=== PATIENT | male | born 1980 | race Caucasian/White ===

== ENCOUNTER 2017-05-07 10:57 | Day surgery (SDC) | payer MEDICAID, OTHER ==
[2017-03-29 08:50] VITALS: BMI 35.2
[2017-05-07] MEDS ORDERED: ceFAZolin IV 1 gm in Dextrose 0 GM/0 ML BAG IVPB ONE (13:25)
[2017-05-07] MEDS ORDERED: Bupivacaine-Epi 0.25%-1:200,000 PF Inj ONE (13:25)
[2017-05-07] MEDS ORDERED: HEPARIN-NS 5,000 UNITS/500 ML 5,000 UNIT/500 ML BAG IV ONE (13:26)
[2017-05-07] MEDS ORDERED: Lidocaine 1% Inj (20ml) ONE (13:26)
[2017-05-07] MEDS ORDERED: Sodium Chloride 0.9% 20 ML IV ONE (13:28)
[2017-05-07] MEDS ORDERED: ceFAZolin IV 2 gm in Dextrose 2 GM/50 ML BAG IVPB ONE (13:33)
[2017-05-07] MEDS ORDERED: Lactated Ringer's 1,000 ML IV ONE (13:40)
[2017-05-07] MEDS ORDERED: HYDROmorphone 0.5 mg/0.5 ml ISec IVP PRN (14:57)
--- NOTE | 2017-05-07 15:00 | PCM.SURG1 ---
Surgeon's Initial Post Op Note - Surgeon's Notes Surgeon: Dr. Wood Cook Chef: Dr. Awan PGY2 Type of Anesthesia: General LMA Pre-Operative Diagnosis: lymphoma Operative Findings: see dictation Post-Operative Diagnosis: same Operation Performed: right internal jugular portacath placement Specimen/Specimens Removed: none Estimated Blood Loss: EBL {In ML}: 5 Blood Products Given: N/A Drains Used: No Drains Post-Op Condition: Good Date of Surgery/Procedure: 05/07/17 Time of Surgery/Procedure: 13:40
--- NOTE | 2017-05-07 15:35 | RAD ---
HISTORY: s/p portacath placement COMPARISON: Chest radiograph dated 03/08/2017 FINDINGS: LUNGS: Low lung volumes. No active pulmonary disease. PLEURA: No significant pleural effusion identified, no pneumothorax apparent. CARDIOVASCULAR: Normal. OSSEOUS STRUCTURES: No significant abnormalities. VISUALIZED UPPER ABDOMEN: Normal. OTHER FINDINGS: New right internal jugular access chest port with catheter tip at the cavoatrial junction. IMPRESSION: Interval placement of right sided chest port in satisfactory position. No pneumothorax.
[2017-05-07 17:51] VITALS: BP 116/67; PULSE 77; RESP 20; TEMP 97.8; O2SAT 97
--- NOTE | 2017-05-07 17:58 | RAD ---
PROCEDURE: Intraoperative Fluoroscopy. HISTORY: POOR VENOUS ACCESS FINDINGS: Fluoroscopic assistance was provided for VAD insertion. Please refer fluoroscopy time was 18.9 seconds with a total shoulder does of 0.1566 mgym2.
--- NOTE | 2017-05-08 07:13 | OP ---
PROCEDURE DATE: 05/07/2017 PREOPERATIVE DIAGNOSIS: Lymphoma. POSTOPERATIVE DIAGNOSIS: Lymphoma. PROCEDURES DONE: 1. Right internal jugular Port-A-Cath catheter insertion. 2. Intraoperative fluoroscopy. 3. Ultrasound-guided venous access. SURGEON: Loco Wood MD COOPERATIVE MANAGER: Juanita Awan DO, PGY-2 resident. TYPE OF ANESTHESIA: General endotracheal tube anesthesia. INTRAOPERATIVE FINDINGS: The patient had a patent right IJ on ultrasound. ESTIMATED BLOOD LOSS: Around 10 mL. DRAINS: None. PATHOLOGY: None. COMPLICATIONS: None. DESCRIPTION OF PROCEDURE: On intraoperative steps, this 37-year-old male was diagnosed with lymphoma, and the patient was consented for the Port-A-Cath insertion and brought to the OR, placed supine on the operating room table. After induction of the anesthesia, the bilateral neck and upper chest was prepped and draped in the usual sterile fashion. Under ultrasound guidance, the right IJ venous access was done. The infraclavicular right-sided incision was made and a pouch was created. The catheter was tunneled from the pouch up to the right IJ insertion site, and the catheter was placed into the dilator sheath. Intraoperative fluoroscopy confirmation was done, and the catheter was connected to the port, and the port was accessed intraoperatively. Intraoperative fluoroscopy confirmation was done again, and there was a proper placement of the catheter, and after that, the port was flushed with heparin saline as well as a straight heparin and the port was secured to the pouch. The wound was closed subcutaneously with 2-0 Vicryl, skin with 4-0 Monocryl, and dry sterile dressing was applied. The patient tolerated the procedure well. Count of the instrument and gauze was correct. There was no apparent complication. The patient was extubated in the OR and sent to the Postanesthesia Care Unit in stable condition. Loco Wood MD
== END 2017-05-07 17:10 | disposition home or self-care (01) ==
LOC: C.SDS 10:57
PROVIDERS: ATTEND Surgery Surgical Critical Care
DX: C83.33 Diffuse large B-cell lymphoma, intra-abdominal lymph nodes (principal); I10 Essential (primary) hypertension; R73.03 Prediabetes
CPT/HCPCS: 36561; 71010; 77001; J0690; J1644; J7120

== ENCOUNTER 2017-12-15 18:51 | Emergency (ER) | payer SELFPAY ==
[2017-12-15 18:52] VITALS: BMI 37.0
[2017-12-15] MEDS ORDERED: Iohexol 240 (50 ml) PO STA (20:04)
[2017-12-15] MEDS ORDERED: Sodium Chloride 0.9% 1,000 ML IV ONE (20:04)
[2017-12-15] MEDS ORDERED: Piperacillin/Tazobact 3.375 gm 100 ML IV STA (20:05)
--- NOTE | 2017-12-15 20:06 | C.PDOC ---
"History Of Present Illness 37 year old male with a PMHx of lymphoma a year ago treated and in remission with no problems since, presents to the ER with a complaint of sudden onset of RLQ pain, generalized body aches, muscle pain, and fever of 103 today. Patient states he had a fever 8 days ago that lasted 1.5 days, afterwards he was fine for the rest of the week without any other problems. Denies nausea, vomiting, or trouble urinating. Time Seen by Provider: 12/15/17 19:58 Chief Complaint (Nursing): Abdominal Pain History Per: Patient History/Exam Limitations: no limitations Onset/Duration Of Symptoms: Hrs Current Symptoms Are (Timing): Still Present Location Of Pain/Discomfort: RLQ Radiation Of Pain To:: None Quality Of Discomfort: Unable To Describe Associated Symptoms: Fever, Other (Body aches, muscle pain). denies: Nausea, Vomiting, Urinary Symptoms Exacerbating Factors: None Alleviating Factors: None Recent travel outside of the [place]: No Past Medical History Reviewed: Historical Data, Nursing Documentation, Vital Signs Vital Signs: Last Vital Signs Temp 103 F H 12/15/17 19:20 Pulse 141 H 12/15/17 19:20 Resp 24 12/15/17 19:20 BP 120/73 12/15/17 19:20 Pulse Ox 97 12/15/17 20:23 - Medical History PMH: HTN (no meds at present time sts discontinued), Hypercholesterolemia (no meds at present time sts discontinued) Family History: States: Unknown Family Hx - Social History Hx Tobacco Use: No Hx Alcohol Use: No Hx Substance Use: No - Immunization History Hx Tetanus Toxoid Vaccination: No Hx Influenza Vaccination: No Hx Pneumococcal Vaccination: No Review Of Systems Constitutional: Positive for: Fever Cardiovascular: Negative for: Chest Pain, Palpitations Respiratory: Negative for: Cough, Shortness of Breath Gastrointestinal: Positive for: Abdominal Pain. Negative for: Nausea, Vomiting Genitourinary: Negative for: Dysuria Musculoskeletal: Negative for: Neck Pain Skin: Negative for: Rash Neurological: Negative for: Weakness, Numbness Physical Exam - Physical Exam Appears: Non-toxic Skin: Normal Color, Dry, Other (Hot) Head: Atraumatic, Normacephalic Eye(s): bilateral: Normal Inspection Oral Mucosa: Moist Neck: Normal, Supple Chest: Symmetrical, No Tenderness Cardiovascular: Rhythm Regular (Tachycardic in the 120s) Respiratory: Normal Breath Sounds, No Rales, No Rhonchi, No Wheezing Gastrointestinal/Abdominal: Bowel Sounds (Absent), Soft, Tenderness (RLQ), No Guarding, No Rebound Back: No CVA Tenderness Neurological/Psych: Oriented x3, Normal Speech ED Course And Treatment - Laboratory Results Result Diagrams: 12/15/17 20:37 12/15/17 20:11 Lab Interpretation: No Acute Changes O2 Sat by Pulse Oximetry: 97 (Room air) Pulse Ox Interpretation: Normal - CT Scan/US CT abdomen and pelvis Other Rad Studies (CT/US): Read By Radiologist, Radiology Report Reviewed CT/US Interpretation: EXAM: CT Abdomen and Pelvis With Intravenous Contrast. CLINICAL HISTORY: 37 years old, male; Pain; Abdominal pain; Periumbilical; Additional info: Abd pain. TECHNIQUE: Axial computed tomography images of the abdomen and pelvis with intravenous contrast. All CT. scans at this facility use at least one of these dose optimization techniques: automated exposure. control; mA and/or kV adjustment per patient size (includes targeted exams where dose is matched to. clinical indication); or iterative reconstruction. Coronal and sagittal reformatted images were created and reviewed. CONTRAST: 100 mL of omnipaque 300 administered intravenously. COMPARISON: No relevant prior studies available. FINDINGS: Lung bases: Mild dependent atelectasis. Elevated right hemidiaphragm. ABDOMEN: Liver: There is hepatomegaly and fatty infiltration of the liver. Gallbladder and bile ducts: Distended gallbladder without stones or pericholecystic fluid/induration. No ductal dilation. Pancreas: Unremarkable. No mass. No ductal dilation. Spleen: Mild splenomegaly. Adrenals: Unremarkable. No mass. Kidneys and ureters: No hydronephrosis or differential renal nephrogram. Too small to characterize. right renal hypodensity. Stomach and bowel: Diverticulosis coli, without full- filling the C.T. criteria for diverticulitis. No. perforation, or abscess. No signs or history of bleeding provided. No obstruction. ELIECER TATE | Preliminary Radiology Report. CONFIDENTIALITY STATEMENT. This report is intended only for the use of the referring physician, and only in accordance with law, If you received this in error, call [phone]. Page 2 of 2. PELVIS: Appendix: Normal appendix. Bladder: Incomplete urinary bladder distention with prominent wall. Pericystic induration. Cystitis not. excluded. Correlate with urinalysis. Reproductive: Unremarkable as visualized. ABDOMEN and PELVIS: Intraperitoneal space: Unremarkable. No free air. No significant fluid collection. Bones/joints: No acute fracture. No dislocation. Soft tissues: Central pattern obesity Surgical clips in the right groin. Vasculature: Unremarkable. No abdominal aortic aneurysm. Lymph nodes: There are small, benign-appearing lymph nodes, probably reactive, most measuring 1. cm or smaller in the short axis. Please refer to prior workup. . IMPRESSION: No definitive or acute CT findings to explain the patient's presentation. Surgical changes right groin, correlate with prior work up. Thank you for allowing us to participate in the care of your patient. Dictated and Authenticated by: Kimberly Lambert MD. 12/15/2017 11:32 PM Eastern Time ([place] & [place]) Progress Note: Blood work, urinalysis, and CT abd/pel ordered. Zosyn, morphine, and IV fluids administered. Reevaluation Time: 23:41 Reassessment Condition: Improved Disposition Counseled Patient/Family Regarding: Studies Performed, Diagnosis, Need For Followup - Disposition Referrals: [facility] at [facility] [Outside] Disposition: HOME/ ROUTINE Disposition Time: 23:42 Condition: STABLE Additional Instructions: Follow up in clinic tomorrow. Instructions: Acute Abdomen (Belly Pain), Fever, Adult (DC) Forms: [facility] [employer] (Algerian) - Clinical Impression Clinical Impression: Abdominal pain, Fever - Scribe Statement The provider has reviewed the documentation as recorded by the Scribdanyelle Mckoy All medical record entries made by the Scribe were at my direction and personally dictated by me. I have reviewed the chart and agree that the record accurately reflects my personal performance of the history, physical exam, medical decision making, and the department course for this patient. I have also personally directed, reviewed, and agree with the discharge instructions and disposition."
[2017-12-15] MEDS ORDERED: Iohexol 240 (50 ml) ONE (20:16)
[2017-12-15] MEDS ORDERED: Piperacillin/Tazobact 3.375 gm 100 ML IVPB ONE (20:17)
[2017-12-15 20:34] LABS: URINE BILIRUBIN NEGATIVE (NEGATIVE); URINE BLOOD NEGATIVE (NEGATIVE); URINE CLARITY Clear (Clear); URINE COLOR Yellow (YELLOW); URINE GLUCOSE (UA) NORMAL (Normal); URINE LEUKOCYTE ESTERASE NEG Leu/uL (Negative); URINE PROTEIN NEGATIVE (NEGATIVE); URINE UROBILINOGEN NORMAL mg/dL (0.2-1.0)
[2017-12-15 20:35] LABS: VENOUS BLOOD GAS BASE EXCESS -1.3 mmol/L (0.0-2.0); VENOUS BLOOD GAS PCO2 35 mmHg (40-60); VENOUS BLOOD GAS PO2 39 mm/Hg (30-55); VENOUS BLOOD PH 7.42 (7.32-7.43)
[2017-12-15 20:44] LABS: RBC 4.98 Mil/uL (4.40-5.90); WHITE BLOOD COUNT 9.2 K/uL (4.8-10.8)
[2017-12-15 20:45] LABS: BASO % 0.7 % (0.0-2.0); EOS # 0.1 K/uL (0.0-0.7); EOS % 1.6 % (0.0-4.0); HEMOGLOBIN 14.8 g/dL (12.0-18.0); LYMPH # 0.9 K/uL (1.0-4.3); LYMPH % 6.2 % (20.0-40.0); MEAN CORPUSCULAR HEMOGLOBIN 29.6 pg (27.0-31.0); MEAN CORPUSCULAR HGB CONC 35.6 g/dL (33.0-37.0); MEAN PLATELET VOLUME 7.1 fL (7.2-11.7); MONO # 0.1 K/uL (0.0-0.8); MONO % 9.9 % (0.0-10.0); NEUT # 0.6 K/uL (1.8-7.0); NEUT % 81.6 % (50.0-75.0); NRBC % 7.5 % (0.0-2.0); PLATELET COUNT 332 K/uL (130-400); RED CELL DISTRIBUTION WIDTH 13.9 % (11.5-14.5)
[2017-12-15 21:15] LABS: ALB/GLOB RATIO 1.5 (1.0-2.1); ALBUMIN 4.8 g/dL (3.5-5.0); ALT/SGPT 72 U/L (21-72); AST/SGOT 50 U/L (17-59); BLOOD UREA NITROGEN 19 mg/dL (9-20); CALCIUM 9.6 mg/dl (8.6-10.4); GFR AFRICAN-AMERICAN > 60; GFR NON-AFRICAN AMERICAN > 60; LIPASE 63 U/L (23-300)
[2017-12-15 21:20] LABS: BANDS 6 % (0-2); EOSINOPHIL 4 % (0-4); LYMPHOCYTE 6 % (20-40); MONOCYTE 10 % (0-10); NEUTROPHIL 74 % (50-75); PLATELET ESTIMATE NORMAL (NORMAL); TOTAL CELLS COUNTED 100
[2017-12-15 23:49] VITALS: BP 128/69; PULSE 81; RESP 20; TEMP 99; O2SAT 98
--- NOTE | 2017-12-16 10:48 | CT ---
Date of service: 12/15/2017 PROCEDURE: CT Abdomen and Pelvis without intravenous contrast HISTORY: Abdominal pain COMPARISON: None. TECHNIQUE: Multiple contiguous axial images were the abdomen pelvis without use contrast. Subsequently, sagittal and coronal reformatted images were obtained. Radiation dose: Total exam DLP = 1143 mGy-cm. This CT exam was performed using one or more of the following dose reduction techniques: Automated exposure control, adjustment of the mA and/or kV according to patient size, and/or use of iterative reconstruction technique. FINDINGS: LOWER THORAX: Mild dependent atelectasis. Elevated right hemidiaphragm. 5 millimeter pulmonary nodule within the right middle lobe on series 3, image 8. 3 millimeter pulmonary nodule within the inferior left upper lobe on series 3, image 30. Lingular atelectasis. LIVER: Hepatomegaly with fatty infiltration of the liver. GALLBLADDER AND BILE DUCTS: Distended gallbladder. PANCREAS: Unremarkable. No gross lesion or ductal dilatation. SPLEEN: Mild splenomegaly. Splenules. ADRENALS: Unremarkable. No mass. KIDNEYS AND URETERS: 6 millimeter hypodensity in the mid to lower pole of the right kidney best seen on series 3, image 109, too small to adequately characterize. VASCULATURE: Unremarkable. No aortic aneurysm. BOWEL: Unremarkable. No obstruction. No gross mural thickening. Diverticulosis. APPENDIX: Unremarkable. Normal appendix. PERITONEUM: Unremarkable. No free fluid. No free air. LYMPH NODES: Small benign appearing lymph nodes, probably reactive, most measuring 1 centimeter or smaller in short axis. Please refer to prior workup. BLADDER: Incomplete urinary bladder distention with prominent wall. Pericystic induration. REPRODUCTIVE: Unremarkable. BONES: Degenerative changes in the spine. Multilevel posterior disc osteophyte complexes. OTHER FINDINGS: Surgical clips in the right groin. IMPRESSION: 1. Surgical changes in the right groin. Correlate with prior workup. Clinical correlation. 2. Incomplete urinary bladder distention with prominent wall. Pericystic induration. Clinical correlation. 3. 5 millimeter pulmonary nodule within the right middle lobe on series 3, image 8. 3 millimeter pulmonary nodule within the inferior left upper lobe on series 3, image 30. Lingular atelectasis. Correlation with [address] follow-up would be helpful for further evaluation if clinically indicated. 4. Hepatomegaly with fatty infiltration of the liver. These findings were preliminarily reported at 11:32 p.m. on 12/15/[address] Kimberly Lambert from [facility].
== END 2017-12-15 23:51 | disposition home or self-care (01) ==
LOC: C.ER 18:51
DX: R10.31 Right lower quadrant pain (principal); R50.9 Fever, unspecified
CPT/HCPCS: 74177; 80053; 81001; 82803; 83690; 85025; 87040; 87149; 87205; 96365; 96375; 99285; J2270; J2543; J7030; Q9966

== ENCOUNTER 2018-07-21 21:54 | Emergency (ER) | payer OTHER, SELFPAY ==
[2018-07-21 21:54] VITALS: BMI 36.0
[2018-07-21 22:03] VITALS: TEMP 98.7; O2SAT 99
[2018-07-21] MEDS ORDERED: Sodium Chloride 0.9% 1,000 ML IV STA (22:31)
--- NOTE | 2018-07-21 22:33 | C.PDOC ---
History Of Present Illness 38 y/o M c PMHx lymphoma s/p resection p/w RLQ pain x 1 week, getting much worse as of yesterday. Pain is sharp, intermittent, worse with movement. Denies fever, nausea, vomiting, diarrhea, dysuria, hematuria. Patient suspects muscle strain but due to longevity of pain, came to ED to make sure it wasn't something worse. <Abdullahi Peres - Last Filed: 07/21/18 22:34> <Abdullahi Peres - Last Filed: 07/21/18 22:34> <Emily Alexandre - Last Filed: 07/22/18 02:52> Time Seen by Provider: 07/21/18 22:23 Chief Complaint (Nursing): Abdominal Pain Past Medical History Vital Signs: Last Vital Signs Temp 98.7 F 07/21/18 21:59 Pulse 77 07/21/18 21:59 Resp 16 07/21/18 21:59 BP 133/82 07/21/18 21:59 Pulse Ox 99 07/21/18 21:59 - Medical History PMH: HTN (no meds at present time sts discontinued), Hypercholesterolemia (no meds at present time sts discontinued) Denies: Chronic Kidney Disease Family History: States: Unknown Family Hx - Social History Hx Tobacco Use: No Hx Alcohol Use: No Hx Substance Use: No - Immunization History Hx Tetanus Toxoid Vaccination: No Hx Influenza Vaccination: No Hx Pneumococcal Vaccination: No <LraisaAbdullahi Jean - Last Filed: 07/21/18 22:34> Vital Signs: Last Vital Signs Temp 98.7 F 07/21/18 21:59 Pulse 77 07/21/18 21:59 Resp 16 07/21/18 21:59 BP 133/82 07/21/18 21:59 Pulse Ox 99 07/21/18 22:35 <Emily Alexandre - Last Filed: 07/22/18 02:52> Review Of Systems Except As Marked, All Systems Reviewed And Found Negative. Constitutional: Negative for: Fever Cardiovascular: Negative for: Chest Pain <Abdullahi Peres - Last Filed: 07/21/18 22:34> Physical Exam - Physical Exam Additional Physical Exam Comments: Constitutional: No acute distress. Head: Normocephalic. Atraumatic. Eyes: PERRL. EOMI. ENT: Moist mucous membranes. Neck: Supple. Cardiovascular: Regular rate. Radial pulses 2+ bilaterally. Chest: No tenderness. Respiratory: Clear to auscultation bilaterally. GI: RLQ tenderness with guarding. No hernia. Back: No CVA tenderness. Musculoskeletal: No tenderness or swelling of extremities. Skin: No rash. Neurologic: Alert, no focal deficit. <LarisaAbdullahi Jean - Last Filed: 07/21/18 22:34> ED Course And Treatment O2 Sat by Pulse Oximetry: 99 <Abdullahi Peres - Last Filed: 07/21/18 22:34> - Laboratory Results Result Diagrams: 07/21/18 23:13 07/21/18 23:13 Lab Results: Total Bilirubin 0.3 mg/dL (0.2-1.3) 07/21/18 23:13 AST 32 U/L (17-59) 07/21/18 23:13 ALT 37 U/L (21-72) 07/21/18 23:13 Alkaline Phosphatase 84 U/L (38-126) 07/21/18 23:13 Total Protein 7.1 g/dL (6.3-8.3) 07/21/18 23:13 Albumin 4.5 g/dL (3.5-5.0) 07/21/18 23:13 Globulin 2.6 gm/dL (2.2-3.9) 07/21/18 23:13 Albumin/Globulin Ratio 1.7 (1.0-2.1) 07/21/18 23:13 Lipase 116 U/L (23-300) 07/21/18 23:13 Urine Color Yellow (YELLOW) 07/21/18 23:13 Urine Clarity Clear (Clear) 07/21/18 23:13 Urine pH 5.0 (5.0-8.0) 07/21/18 23:13 Ur Specific [place] 1.033 (1.003-1.030) H 07/21/18 23:13 Urine Protein 1+ mg/dL (NEGATIVE) H 07/21/18 23:13 Urine Glucose (UA) Normal mg/dL (Normal) 07/21/18 23:13 Urine Ketones Negative mg/dL (NEGATIVE) 07/21/18 23:13 Urine Blood Negative (NEGATIVE) 07/21/18 23:13 Urine Nitrate Negative (NEGATIVE) 07/21/18 23:13 Urine Bilirubin Negative (NEGATIVE) 07/21/18 23:13 Urine Urobilinogen 2.0 mg/dL (0.2-1.0) 07/21/18 23:13 Ur Leukocyte Esterase Neg Benjamin/uL (Negative) 07/21/18 23:13 Urine WBC (Auto) < 1 /hpf (0-5) 07/21/18 23:13 Urine RBC (Auto) 1 /hpf (0-3) 07/21/18 23:13 Urine Bacteria Rare (<OCC) 07/21/18 23:13 Pulse Ox Interpretation: Normal Reevaluation Time: 02:50 Reassessment Condition: Improved <Emily Alexandre - Last Filed: 07/22/18 02:52> Medical Decision Making Medical Decision Making: Upon provider reevaluation patient is feeling better, is medically stable, and requires no further treatment in the ED at this time. Patient will be discharged home with Rx for miralax. Counseling was provided and all questions were answered regarding diagnosis and need for follow up with the referred clinic. There is agreement to discharge plan. Return if symptoms persist or worsen. <Emily Alexandre - Last Filed: 07/22/18 02:52> Disposition <Abdullahi Peres - Last Filed: 07/21/18 22:34> Counseled Patient/Family Regarding: Studies Performed, Diagnosis, Need For Followup, Rx Given - Disposition Disposition Time: 01:00 <Emily Alexandre - Last Filed: 07/22/18 02:52> - Disposition Referrals: [facility] [Outside] Disposition: HOME/ ROUTINE Condition: FAIR Additional Instructions: Please return if symptoms recur Prescriptions: Polyethylene Glycol 3350 [Miralax] 17 gm PO DAILY #270 ml Instructions: Constipation, Adult (DC) Forms: [employer] (Setswana) - Clinical Impression Clinical Impression: Abdominal bloating, Constipation
[2018-07-21] MEDS ORDERED: Morphine 4 MG/ML VIAL ONE (23:00)
[2018-07-21] MEDS ORDERED: Sodium Chloride 0.9% 1,000 ML ONE (23:00)
[2018-07-21 23:19] LABS: BASO # 0.1 K/uL (0.0-0.2); BASO % 0.9 % (0.0-2.0); EOS # 0.5 K/uL (0.0-0.7); EOS % 5.7 % (0.0-4.0); HEMOGLOBIN 14.6 g/dL (12.0-18.0); LYMPH # 1.3 K/uL (1.0-4.3); LYMPH % 16.4 % (20.0-40.0); MEAN CELL VOLUME 87.2 fL (80.0-94.0); MEAN CORPUSCULAR HEMOGLOBIN 30.2 pg (27.0-31.0); MEAN CORPUSCULAR HGB CONC 34.7 g/dL (33.0-37.0); MEAN PLATELET VOLUME 7.5 fL (7.2-11.7); MONO # 0.4 K/uL (0.0-0.8); MONO % 5.7 % (0.0-10.0); NEUT # 5.6 K/uL (1.8-7.0); NEUT % 71.3 % (50.0-75.0); RBC 4.84 Mil/uL (4.40-5.90); RED CELL DISTRIBUTION WIDTH 13.4 % (11.5-14.5); WHITE BLOOD COUNT 7.9 K/uL (4.8-10.8)
[2018-07-21 23:20] LABS: URINE BACTERIA RARE (<OCC); URINE BILIRUBIN NEGATIVE (NEGATIVE); URINE BLOOD NEGATIVE (NEGATIVE); URINE CLARITY Clear (Clear); URINE COLOR Yellow (YELLOW); URINE GLUCOSE (UA) NORMAL (Normal); URINE LEUKOCYTE ESTERASE NEG Leu/uL (Negative); URINE PROTEIN 1+ mg/dL (NEGATIVE)
[2018-07-21] MEDS ORDERED: Iodixanol 320 MG/ML 100 ML BOTTLE IV ONE (23:26)
[2018-07-21 23:45] LABS: ALT/SGPT 37 U/L (21-72); AST/SGOT 32 U/L (17-59); BLOOD UREA NITROGEN 20 mg/dL (9-20); CALCIUM 9.1 mg/dl (8.6-10.4); LIPASE 116 U/L (23-300)
[2018-07-21 23:47] LABS: GFR NON-AFRICAN AMERICAN > 60
[2018-07-21 23:48] LABS: ALB/GLOB RATIO 1.7 (1.0-2.1); ALBUMIN 4.5 g/dL (3.5-5.0)
[2018-07-22 03:02] VITALS: BP 120/70; PULSE 70; RESP 14
--- NOTE | 2018-07-22 07:26 | CT ---
CT abdomen and pelvis HISTORY: Right lower quadrant abdominal pain. COMPARISON: CT dated 12/15/2017 TECHNIQUE: Multiple contiguous axial images were performed through the abdomen and pelvis with the use of intravenous contrast. Subsequently, sagittal and coronal reformatted images obtained. This CT exam was performed using one or more of the following dose reduction techniques: Automated exposure control, adjustment of the mA and/or kV according to patient size, and/or use of iterative reconstruction technique. Findings: Nonspecific stranding noted within the subcutaneous soft tissues at the level of the left anterior lower chest wall/left breast as demonstrated on series 3, image 15. Nonspecific. Clinical correlation. Linear atelectasis within the right lower lobe. 2 millimeter nodule within the lingula. Linear consolidation more inferiorly within the lingula. Left basilar atelectasis. 4 millimeter calcified granuloma within the left lower lobe. No pleural or pericardial effusion. Liver is preserved. Gallbladder is preserved. Spleen is preserved. Splenules. Adrenal glands are preserved. Pancreas is preserved. Upper abdominal bowel demonstrates a few mildly distended loops of small bowel seen within the upper mid abdomen which may represent an enteritis. Focal underdistention at the level of the proximal sigmoid colon. Clinical correlation. Right kidney: 5 millimeter lower pole hypodensity, too small to adequately characterize. Left Kidney: No calculi or hydronephrosis. Urinary bladder is preserved. Heterogeneous prostate. Fecal retention in the colon. Appendix is visualized and is within normal limits. Degenerative changes in the spine with multilevel posterior disc osteophyte complexes. Impression: 1. Few mildly distended loops of small bowel seen within the upper mid abdomen which may represent an enteritis. Clinical correlation. 2. Fecal retention in the colon. 3. Surgical clips in the right inguinal region which suggests possible prior lymph node dissection. Clinical correlation. 4. Nonspecific stranding noted within the subcutaneous soft tissues at the level of the left anterior lower chest wall/left breast as demonstrated on series 3, image 15. Nonspecific. Clinical correlation. 5. 2 millimeter pulmonary nodule within the lingula. 3-6 month interval follow-up may be helpful. Additional findings as above. A preliminary report was generated at 2:37 a.m. on 07/22/[address] Jean Pierre Espitia from [employer]. This case was placed in the PA review folder.
== END 2018-07-22 03:02 | disposition home or self-care (01) ==
LOC: C.ER 21:54
DX: R14.0 Abdominal distension (gaseous) (principal); K59.00 Constipation, unspecified; E78.00 Pure hypercholesterolemia, unspecified; I10 Essential (primary) hypertension; Z85.72 Personal history of non-Hodgkin lymphomas
CPT/HCPCS: 74177; 80053; 81001; 83690; 85025; 87086; 96361; 96374; 96375; 99283; J1885; J2270; J7030; Q9967

== ENCOUNTER 2018-07-24 12:12 | Emergency (ER) | payer OTHER ==
[2018-07-24 12:12] VITALS: BMI 36.0
[2018-07-24 12:19] VITALS: BP 121/74; PULSE 66; RESP 20; TEMP 98.4; O2SAT 98
--- NOTE | 2018-07-24 12:38 | C.PDOC ---
History Of Present Illness 38 y/o male with hx lymphoma, not currently receiving treatment, c/o right lower back pain that radiates to right leg for several weeks and is worse wiht movement. Time Seen by Provider: 07/24/18 12:21 Chief Complaint (Nursing): Back Pain History Per: Patient History/Exam Limitations: no limitations Onset/Duration Of Symptoms: Days Current Symptoms Are (Timing): Still Present Past Medical History Reviewed: Historical Data, Nursing Documentation, Vital Signs Vital Signs: Last Vital Signs Temp 98.4 F 07/24/18 12:17 Pulse 66 07/24/18 12:17 Resp 20 07/24/18 12:17 BP 121/74 07/24/18 12:17 Pulse Ox 98 07/24/18 12:17 - Medical History PMH: HTN (no meds at present time sts discontinued), Hypercholesterolemia (no meds at present time sts discontinued) Family History: States: Unknown Family Hx - Social History Hx Tobacco Use: No Hx Alcohol Use: No Hx Substance Use: No - Immunization History Hx Tetanus Toxoid Vaccination: No Hx Influenza Vaccination: No Hx Pneumococcal Vaccination: No Review Of Systems Musculoskeletal: Positive for: Back Pain (right lower), Leg Pain (right) Neurological: Negative for: Weakness, Numbness Physical Exam - Physical Exam Appears: Non-toxic, No Acute Distress Skin: Warm, Dry Head: Normacephalic Eye(s): bilateral: Normal Inspection Cardiovascular: Rhythm Regular Respiratory: Normal Breath Sounds Gastrointestinal/Abdominal: Soft, No Tenderness Back: No CVA Tenderness, No Vertebral Tenderness, Straight Leg Raising (mild; positive ), Other (right paralumbar tenderness ) Neurological/Psych: Oriented x3, Normal Speech, Normal Cognition, Normal Motor, Normal Sensation ED Course And Treatment O2 Sat by Pulse Oximetry: 98 (RA) Pulse Ox Interpretation: Normal Medical Decision Making Medical Decision Making: Plans: -- tylenol -- lidocaine -- toradol -- flexeril pt with low right back pain x 2 weeks, seen in ed 3 days ago. pt had labs drawn and abdominal ct done 3 days ago, dx constipation, has not yet started miralax. taking 600 mg ibuprofen q6 without improvement. pain worse with movement. given toradol, flexeril and lidoderm patch in ed and feels much better. pt advised blood gluose elevated on last several ed viists, needs to f/u in clinic [facility] for eval of glucose, and whether it is time for another pet scan. pt understands and agrees to plan. Disposition Counseled Patient/Family Regarding: Studies Performed, Diagnosis, Need For Followup, Rx Given - Disposition Referrals: [facility] at [facility] [Outside] Disposition: HOME/ ROUTINE Disposition Time: 13:54 Condition: IMPROVED Additional Instructions: Follow up with medical clinic for re-evaluation of back pain, elevated glucose and when you need to do another pet scan. Continue ibuprofen and take muscle relaxant as prescribed. Do not drive or operate machinery with this medicine., makes you drowsy. Take patch off after 12 hours. Prescriptions: Cyclobenzaprine [Cyclobenzaprine HCl] 10 mg PO Q8 #9 tab Instructions: Low Back Pain (DC) Forms: [employer] (Kuwaiti) - Clinical Impression Clinical Impression: Lumbar sprain - PA / PRODUCTION CONTROL PEGBOARD CLERK / Resident Statement / has reviewed & agrees with the documentation as recorded. - Scribe Statement The provider has reviewed the documentation as recorded by the Jana Ramirez Do All medical record entries made by the Scribe were at my direction and personally dictated by me. I have reviewed the chart and agree that the record accurately reflects my personal performance of the history, physical exam, medical decision making, and the department course for this patient. I have also personally directed, reviewed, and agree with the discharge instructions and disposition.
[2018-07-24] MEDS ORDERED: Lidocaine 5% Patch TD STA (13:07)
[2018-07-24] MEDS ORDERED: Lidocaine 5% Patch TD ONE (13:22)
== END 2018-07-24 14:16 | disposition home or self-care (01) ==
LOC: C.ER 12:12
DX: S33.5XXA Sprain of ligaments of lumbar spine, initial encounter (principal); X58.XXXA Exposure to other specified factors, initial encounter
CPT/HCPCS: 96372; 99283; J1885